=== PATIENT | female | born 1985 | race Two or more races ===

== ENCOUNTER → 2023-10-11 | Emergency (ER) | payer OTHER ==
[~2023-10-11] VITALS: Ht 167.6 cm; Wt 95.3 kg
== END | disposition left against medical advice (07) ==
LOC: ER 18:26
DX: M25.532 Pain in left wrist (principal)

== ENCOUNTER 2023-11-17 09:33 | Outpatient (CLI) | payer OTHER | END 2023-11-17 09:55 | disposition home or self-care (01) | LOC: RAD 09:33 | PROVIDERS: ATTEND Obstetrics & Gynecology Obstetrics | DX: M25.551 Pain in right hip (principal) | CPT/HCPCS: 73221 ==